=== PATIENT | female | born 1960 | race Caucasian/White ===

== ENCOUNTER 2017-03-05 12:31 | Day surgery (SDC) | payer OTHER ==
[~2017-03-05] VITALS: Ht 162.6 cm; Wt 59.2 kg
[~2017-03-05 12:31] MED LIST: NO MEDS.
[2017-03-05 14:14] VITALS: Ht 162.6 cm; Wt 59.2 kg
[2017-03-05 14:42] VITALS: BP 171/81; PULSE 99; RESP 24
[2017-03-05] MEDS ORDERED: FENTAnyl 50 MCG/ML VIAL ONE (15:46)
[2017-03-05] MEDS ORDERED: MIDAZOLAM 1 MG/ML 2 ML INJ ONE ×3 (15:46)
--- NOTE | 2017-03-05 15:51 | GILP ---
DATE OF PROCEDURE: 03/05/2017 NAME OF PROCEDURES: Colonoscopy and biopsy. SURGEON: Key Choi MD PREOPERATIVE DIAGNOSIS: Screening colonoscopy. POSTOPERATIVE DIAGNOSES: 1. Colonoscopy all the way to the cecum. 2. Small right colon polyp was removed using the biopsy forceps. 3. Internal hemorrhoids. INDICATION FOR THE PROCEDURE: Ms. Dayana Ferrer is a 56-year-old female patient who was scheduled f or screening colonoscopy. The procedure and possible complications are well explained to the patient. The patient understood and consented to the procedure. DESCRIPTION OF PROCEDURE: Under the influence of fentanyl and Versed, the colonoscope was carefully introduced in the rectum and under direct vision, it was advanced all the way to the cecum. FINDINGS: The patient had a small polyp in the right colon and it was removed using the biopsy forc eps. The patient was noted to have internal hemorrhoids. She tolerated the procedure very well and there was no complication from the procedures. At the end of the procedure, she was awake with stable vital signs and she was discharged home to the care of her family. IMPRESSION: 1. Colonoscopy all the way to the cecum. 2. Small right colon polyp was removed using the biopsy forceps. 3. Internal hemorrhoids. PLAN: 1. Await histopathology report. 2. Screening colonoscopy in 10 years. Dictated By: KEY VELASQUEZ/MILLIE Conf#: [id number] DID#: [id number]
[2017-03-05 16:07] VITALS: BP 111/61; PULSE 74; RESP 17
== END 2017-03-05 16:15 | disposition home or self-care (01) ==
LOC: GIL 12:31
PROVIDERS: ATTEND Internal Medicine Gastroenterology
DX: Z12.11 Encounter for screening for malignant neoplasm of colon (principal); K64.8 Other hemorrhoids; K63.5 Polyp of colon
CPT/HCPCS: 45380; J2250; J3010